=== PATIENT | male | born 1970 | race Caucasian/White ===

== ENCOUNTER 2021-09-25 21:04 | Emergency (ER) | payer BC, OTHER ==
[2021-09-25] MEDS ORDERED: Sodium Chloride 0.9% 10 ML Syringe FLUSH PRN (21:19)
[2021-09-25] MEDS ORDERED: Sodium Chloride 0.9% 1,000 ML IV ONE (21:32)
[2021-09-25] MEDS ORDERED: Diltiazem IR 30 MG Tab PO ONE (21:42)
[2021-09-25] MEDS ORDERED: Diltiazem 50 MG/10 ML SDV IVPUSH ONE (21:42)
[2021-09-25 22:03] LABS: CORONAVIRUS COVID-19 NAA NEGATIVE (NEGATIVE)
== END 2021-09-25 23:17 | disposition home or self-care (01) ==
LOC: JD.ED 21:04
DX: I48.91 Unspecified atrial fibrillation (principal); R00.2 Palpitations; E78.00 Pure hypercholesterolemia, unspecified; Z79.82 Long term (current) use of aspirin; Z79.899 Other long term (current) drug therapy; Z20.822 Contact with and (suspected) exposure to COVID-19
CPT/HCPCS: 0241U; 36415; 71045; 80053; 83735; 84484; 85025; 85610; 93005; 96374; 99285; A9270; J3490; J7030; 93010